=== PATIENT | female | born 1985 | race Caucasian/White ===

== ENCOUNTER 2019-12-17 16:06 | Emergency (ER) | payer OTHER ==
[~2019-12-17] VITALS: Ht 167.6 cm; Wt 74.8 kg
--- NOTE | 2019-12-17 16:16 | NUR ---
PT AMBULATORY TO ER BED 16 C/O BILAT FLANK PAIN W/ DYSURIA AND HEMATURIA THAT STARTED YESTERDAY. PT STATES HX OF UTI. PT IS AFEBRILE W/ STABLE VITALS TAX ANALYST. AWAITING MD BATES.
--- NOTE | 2019-12-17 16:28 | NUR ---
DR RODRIGUEZ AT BEDSIDE FOR EVAL.
[2019-12-17 16:46] LABS: APPEARANCE,URINE Clear (CLEAR); BILIRUBIN,URINE Negative (NEGATIVE); BLOOD, URINE Moderate Ery/uL (NEGATIVE); COLOR,URINE Yellow (YELLOW); KETONES,URINE Negative (NEGATIVE); LEUKOCYTE ESTERASE ,URINE Trace (NEGATIVE); NITRITE, URINE Negative (NEGATIVE); PROTEIN,URINE Negative (NEGATIVE); UGLUCOSE Negative (NEGATIVE); UROBILINOGEN,URINE 0.2 EU/dL (0.2)
[2019-12-17 17:05] LABS: BACTERIA,URINE Few /HPF (None Seen)
[2019-12-17 17:06] LABS: MUCUS,URINE Few /LPF (None Seen); URINE AMORPHOUS URATE Few /HPF (None Seen)
[2019-12-17] MEDS ORDERED: KETOROLAC TROMETHAMINE INJ 30 MG/ML VIAL IV ONE (17:30)
[2019-12-17 17:31] LABS: BASOPHILS % (AUTO) 0.5 % (0.0-2.0); EOSINOPHILS % (AUTO) 1.7 % (0.0-6.0); HEMATOCRIT 37 % (33-45); HEMOGLOBIN 12.1 g/dL (11.5-14.8); LYMPHOCYTES % (AUTO) 32.2 % (20.0-44.0); MEAN CORPUSCULAR HGB CONC 33 g/dl (31.0-36.0); MEAN CORPUSCULAR VOLUME 80 fL (82-100); MONOCYTES # (AUTO) 0.5 /CMM (0.1-1.30); MONOCYTES % (AUTO) 8.4 % (2.0-12.0); NEUTROPHILS # (AUTO) 3.5 /CMM (1.8-8.9); NEUTROPHILS % (AUTO) 57.2 % (43.0-81.0); PLATELET COUNT (AUTO) 205 /CMM (150-450); RED BLOOD CELL COUNT(AUTO) 4.67 MIL/uL (4.0-5.2); WHITE BLOOD COUNT (AUTO) 6.1 K/uL (4.3-11.0)
[2019-12-17] MEDS ORDERED: KETOROLAC TROMETHAMINE INJ 30 MG/ML VIAL ONE (17:37)
[2019-12-17 17:39] LABS: CALCIUM, SERUM 8.4 mg/dL (8.5-10.1); CREATININE 0.7 mg/dL (0.6-1.3); POTASSIUM 4.2 mmol/L (3.5-5.1)
--- NOTE | 2019-12-17 17:40 | NUR ---
PT TO RADIOLOGY FOR ABDOMINAL CT SCAN VIA [facility].
--- NOTE | 2019-12-17 18:33 | NUR ---
Patient discharged to home in stable condition. Written and verbal after care instructions given. Patient verbalizes understanding of instruction.IV removed. Catheter intact and site benign. Pressure and 4x4 applied to site. No bleeding noted.
[2019-12-17 18:34] VITALS: BP 122/80
== END 2019-12-17 18:34 | disposition home or self-care (01) ==
LOC: ER 16:13
DX: N39.0 Urinary tract infection, site not specified (principal)
CPT/HCPCS: 36415; 74176; 80048; 81001; 84703; 85025; 87086; 96374; 99284; J1885; 81000-TC

== ENCOUNTER 2021-07-01 16:01 | Emergency (ER) | payer MEDICAID, OTHER ==
[~2021-07-01] VITALS: Ht 165.1 cm; Wt 65.8 kg
--- NOTE | 2021-07-01 16:05 | NUR ---
BIB RA C/O BACK PAIN AND CP WHILE DRIVING, DENIES TRAUMA. P/S 04/27. DENIES NUMBNESS, TINGLING. AAOX4, ASSISTED TO ER BED 4, ON MONITOR, ON ROOM AIR POX 100%.
--- NOTE | 2021-07-01 16:06 | NUR ---
EKG BEING DONE AT BEDSIDE
--- NOTE | 2021-07-01 16:10 | NUR ---
MATT GROVES AT BEDSIDE FOR EVAL
[2021-07-01] MEDS ORDERED: LORAZEPAM INJ 2 MG/ML VIAL IV ONE (16:30)
[2021-07-01] MEDS ORDERED: ONDANSETRON HCL/PF 4 MG/2 ML VIAL IVP ONE (16:30)
[2021-07-01] MEDS ORDERED: ASPIRIN 325 MG TABLET PO ONE (16:30)
[2021-07-01] MEDS ORDERED: MORPHINE SULFATE INJ 2 MG/ML DISP.SYRIN IV ONE (16:30)
[2021-07-01] MEDS ORDERED: IV NS 0.9% 500 ML BAG IV ONE (16:30)
[2021-07-01] MEDS ORDERED: LORAZEPAM INJ 2 MG/ML VIAL ONE (16:31)
[2021-07-01] MEDS ORDERED: ONDANSETRON HCL/PF 4 MG/2 ML VIAL ONE (16:31)
[2021-07-01] MEDS ORDERED: MORPHINE SULFATE INJ 4 MG/ML DISP.SYRIN ONE (16:32)
[2021-07-01] MEDS ORDERED: ASPIRIN 325 MG TABLET ONE (16:32)
--- NOTE | 2021-07-01 16:48 | NUR ---
SUPERVISOR TREE TRIMMING AT BEDSIDE
--- NOTE | 2021-07-01 17:01 | NUR ---
RADIOLOGY AT BEDSIDE
[2021-07-01 17:19] LABS: CALCIUM, SERUM 9.7 mg/dL (8.5-10.1); CARBON DIOXIDE 22 mmol/L (21-32); CHLORIDE 104 mmol/L (98-107); GLUCOSE 94 mg/dL (74-106); POTASSIUM 3.7 mmol/L (3.5-5.1); SODIUM SERUM 138 mmol/L (136-145); UREA NITROGEN, BLOOD 11 mg/dL (7-18)
[2021-07-01 17:28] LABS: ALANINE AMINOTRANSFERASE 20 U/L (12-78); ALBUMIN 4.1 g/dL (3.4-5.0); ALKALINE PHOSPHATASE 85 U/L (46-116); ASPARTATE AMINOTRANSFERASE 17 U/L (15-37); BILIRUBIN,DIRECT 0.1 mg/dL (0.0-0.2); BILIRUBIN,TOTAL 0.4 mg/dL (0.2-1.0); TOTAL PROTEIN, SERUM 8.2 g/dL (6.4-8.2)
--- NOTE | 2021-07-01 18:02 | NUR ---
PT LAYING IN BED COMFORTABLY, BLANKET GIVEN, NEEDS MET
[2021-07-01 18:12] LABS: BASOPHILS # (AUTO) 0.1 K/uL (0.0-0.2); EOSINOPHILS % (AUTO) 1.2 % (0.0-6.0); HEMATOCRIT 40 % (33-45); HEMOGLOBIN 13.4 g/dL (11.5-14.8); LYMPHOCYTES # (AUTO) 1.5 K/uL (0.8-4.8); LYMPHOCYTES % (AUTO) 21.2 % (20.0-44.0); MEAN CORPUSCULAR HGB CONC 33 g/dl (31.0-36.0); MEAN CORPUSCULAR VOLUME 82 fL (82-100); MONOCYTES # (AUTO) 0.5 K/uL (0.1-1.30); MONOCYTES % (AUTO) 6.7 % (2.0-12.0); NEUTROPHILS % (AUTO) 69.9 % (43.0-81.0); PLATELET COUNT (AUTO) 225 K/uL (150-450); WHITE BLOOD COUNT (AUTO) 7.2 K/uL (4.3-11.0)
[2021-07-01] MEDS ORDERED: NAPR-1009 PO (20:07)
[2021-07-01] MEDS ORDERED: CYCL10TA9 PO (20:07)
--- NOTE | 2021-07-01 20:17 | NUR ---
Patient discharged to home in stable condition. Written and verbal after care instructions given. Patient verbalizes understanding of instruction. IV removed. Catheter intact and site benign. Pressure and 4x4 applied to site. No bleeding noted. pt. ambulatory with a steady gait
[2021-07-01 20:32] VITALS: BP 105/83
== END 2021-07-01 20:17 | disposition home or self-care (01) ==
LOC: ER 16:08
DX: R07.89 Other chest pain (principal); M62.830 Muscle spasm of back
CPT/HCPCS: 36415; 71045; 80048; 80076; 84484; 84703; 85025; 85378; 93005; 96374; 96375; 99285; J2060; J2270; J2405; J7030

== ENCOUNTER 2022-05-03 15:24 | Emergency (ER) | payer MEDICAID ==
[~2022-05-03] VITALS: Ht 167.6 cm; Wt 77.6 kg
[~2022-05-03 15:24] MED LIST: CYCL10TA9 PO; NAPR-1009 PO
[2022-05-03 15:29] VITALS: BP 113/71
[2022-05-03] MEDS ORDERED: AMOX-430 PO (17:10)
[2022-05-03] MEDS ORDERED: IBUP-1953 PO (17:10)
[2022-05-03] MEDS ORDERED: AMOX/CLAVULANATE 875 MG TABLET ONE (17:14)
[2022-05-03] MEDS ORDERED: KETOROLAC TROMETHAMINE INJ 30 MG/ML VIAL ONE (17:14)
--- NOTE | 2022-05-03 17:21 | NUR ---
Patient discharged to home in stable condition. Written and verbal after care instructions given. Patient verbalizes understanding of instruction.
[2022-05-03] MEDS ORDERED: AMOX/CLAVULANATE 875 MG TABLET PO ONE (17:30)
[2022-05-03] MEDS ORDERED: KETOROLAC TROMETHAMINE INJ 30 MG/ML VIAL IM ONE (17:30)
== END 2022-05-03 17:21 | disposition home or self-care (01) ==
LOC: ER 15:27
DX: H83.02 Labyrinthitis, left ear (principal); Z87.440 Personal history of urinary (tract) infections; Z79.899 Other long term (current) drug therapy
CPT/HCPCS: 99283; 96372; J1885

== ENCOUNTER 2022-05-14 16:50 | Inpatient (IN) | payer MEDICAID ==
[~2022-05-14] VITALS: Ht 167.6 cm; Wt 78.9 kg
[~2022-05-14 16:50] MED LIST changes: +AMOX-430 PO; +IBUP-1953 PO
[2022-05-14] MEDS ORDERED: CEFEPIME 1 GM in IV D5W 50 ML IV ONE (17:30)
[2022-05-14] MEDS ORDERED: MORPHINE SULFATE INJ 2 MG/ML DISP.SYRIN IV ONE ×3 (17:30→21:30)
--- NOTE | 2022-05-14 17:47 | NUR ---
PT TAKEN TO RADIOLOGY FOR CT
[2022-05-14] MEDS ORDERED: MORPHINE SULFATE INJ 2 MG/ML DISP.SYRIN ONE ×3 (17:53→22:19)
--- NOTE | 2022-05-14 18:10 | NUR ---
URINE SAMPLE COLLECTED AND SENT TO LAB
--- NOTE | 2022-05-14 18:14 | NUR ---
IV LINE INSERTED ON RAC #20, BLOOD DRAWN AND SENT TO LAB
[2022-05-14 18:29] LABS: BASOPHILS % (AUTO) 0.6 % (0.0-2.0); EOSINOPHILS % (AUTO) 1.6 % (0.0-6.0); HEMATOCRIT 39 % (33-45); HEMOGLOBIN 12.8 g/dL (11.5-14.8); LYMPHOCYTES # (AUTO) 2.3 K/uL (0.8-4.8); LYMPHOCYTES % (AUTO) 33.2 % (20.0-44.0); MEAN CORPUSCULAR HGB CONC 33 g/dl (31.0-36.0); MEAN CORPUSCULAR VOLUME 79 fL (82-100); MONOCYTES # (AUTO) 0.5 K/uL (0.1-1.30); MONOCYTES % (AUTO) 7.1 % (2.0-12.0); NEUTROPHILS % (AUTO) 57.5 % (43.0-81.0); PLATELET COUNT (AUTO) 264 K/uL (150-450); RED BLOOD CELL COUNT(AUTO) 4.96 MIL/uL (4.0-5.2)
--- NOTE | 2022-05-14 18:46 | NUR ---
COVID SWAB COLLECTED AND SENT TO LAB
[2022-05-14 19:07] LABS: BILIRUBIN,URINE NEGATIVE (NEGATIVE); COLOR,URINE YELLOW (YELLOW); LEUKOCYTE ESTERASE ,URINE NEGATIVE (NEGATIVE); NITRITE, URINE NEGATIVE (NEGATIVE); PH,URINE 5.5 (5.0-8.0); PROTEIN,URINE NEGATIVE (NEGATIVE); UGLUCOSE NEGATIVE (NEGATIVE); UROBILINOGEN,URINE 0.2 EU/dL (0.2)
--- NOTE | 2022-05-14 19:11 | NUR ---
MOVE SHEET SUBMITTED.
[2022-05-14 19:15] LABS: CALCIUM, SERUM 8.8 mg/dL (8.5-10.1); CREATININE 0.9 mg/dL (0.6-1.3); POTASSIUM 3.8 mmol/L (3.5-5.1)
[2022-05-14 19:26] LABS: ALBUMIN 3.7 g/dL (3.4-5.0); BILIRUBIN,DIRECT 0.1 mg/dL (0.0-0.2); BILIRUBIN,TOTAL 0.3 mg/dL (0.2-1.0); TOTAL PROTEIN, SERUM 7.8 g/dL (6.4-8.2)
--- NOTE | 2022-05-14 21:19 | NUR ---
MS [id number]
--- NOTE | 2022-05-14 22:16 | NUR ---
REPORT GIVEN TO JIMMIE SEGURA.
--- NOTE | 2022-05-14 22:30 | NUR ---
ADMISSION NOTES RECEIVED PT VIA ARACELI @[id number]. AOx4, ABLE TO MAKE NEEDS KNOWN. ON RA AND TOLERATING WELL. NO SOB NOTED. NO S/SX OF RESPIRATORY DISTRESS NOTED. IV ACCESS IN RAC #20G RUNNING NS @75 ML/HR. SKIN INTACT. SAFETY PRECAUTIONS IN PLACE: BED IN LOWEST, LOCKED POSITION, SIDERAILS UPx2, AND BRAKES ON. ALL NEEDS MET AT THIS TIME.
--- NOTE | 2022-05-14 22:33 | NUR ---
TRANSFERRED PT TO ROOM
[2022-05-14 22:34] VITALS: BP 112/60
[2022-05-14] MEDS ORDERED: Z GUARD REMEDY 4 OZ OINT TP PRN (23:30)
[2022-05-14] MEDS ORDERED: MAG HYDROX/AL HYDROX/SIMETH 30 ML UDC PO PRN (23:30)
[2022-05-14] MEDS ORDERED: IV NS 0.9% 1,000 ML IV PRN (23:30)
[2022-05-14] MEDS ORDERED: MAGNESIUM HYDROXIDE 30 ML UDC PO PRN (23:30)
[2022-05-14] MEDS ORDERED: ZOLPIDEM TARTRATE 5 MG TABLET PO PRN (23:30)
[2022-05-14] MEDS ORDERED: ACETAMINOPHEN 325 MG TABLET PO PRN (23:30)
[2022-05-14] MEDS ORDERED: ONDANSETRON HCL/PF 4 MG/2 ML VIAL IVP PRN (23:30)
[2022-05-15] MEDS: HYDROCODONE/APAP 10/325MG TABLET PO PRN ×2 (01:09→11:13)
--- NOTE | 2022-05-15 01:09 | NUR ---
RN NOTES ADMINISTERED NORCO FOR PAIN PER MD ORDER. VS WNL.
[2022-05-15] MEDS: MORPHINE SULFATE INJ 2 MG/ML DISP.SYRIN IV PRN (03:11)
--- NOTE | 2022-05-15 03:11 | NUR ---
RN NOTES ADMINISTERED MORPHINE FOR PAIN PER MD ORDER. VS WNL.
--- NOTE | 2022-05-15 06:41 | NUR ---
RN CLOSING NOTES PT IN BED, ASLEEP, AWAKENS TO VERBAL STIMULI. AOx4, ABLE TO MAKE NEEDS KNOWN. ON RA AND TOLERATING WELL. NO SOB NOTED. NO S/SX OF RESPIRATORY DISTRESS NOTED. IV ACCESS IN RAC #20G RUNNING NS @75 ML/HR. SKIN INTACT. ALL ORDERS CARRIED OUT. ALL NEEDS MET. PT KEPT CLEAN AND DRY. SAFETY PRECAUTIONS IN PLACE: BED IN LOWEST, LOCKED POSITION, SIDERAILS UPx2, AND BRAKES ON. WILL ENDORSE TO ONCOMING SHIFT FOR SHEN.
[2022-05-15 06:50] LABS: BASOPHILS % (AUTO) 0.6 % (0.0-2.0); EOSINOPHILS % (AUTO) 1.2 % (0.0-6.0); HEMATOCRIT 37 % (33-45); HEMOGLOBIN 12.2 g/dL (11.5-14.8); LYMPHOCYTES # (AUTO) 1.8 K/uL (0.8-4.8); LYMPHOCYTES % (AUTO) 30.3 % (20.0-44.0); MEAN CORPUSCULAR HGB CONC 33 g/dl (31.0-36.0); MEAN CORPUSCULAR VOLUME 78 fL (82-100); MONOCYTES # (AUTO) 0.4 K/uL (0.1-1.30); MONOCYTES % (AUTO) 7.4 % (2.0-12.0); NEUTROPHILS # (AUTO) 3.6 K/uL (1.8-8.9); NEUTROPHILS % (AUTO) 60.5 % (43.0-81.0); PLATELET COUNT (AUTO) 213 K/uL (150-450); RED BLOOD CELL COUNT(AUTO) 4.69 MIL/uL (4.0-5.2); WHITE BLOOD COUNT (AUTO) 5.9 K/uL (4.3-11.0)
[2022-05-15 07:00] VITALS: BP 105/60
--- NOTE | 2022-05-15 07:02 | NUR ---
MS RN OPENING NOTES RECEIVED PATIENT AWAKE IN BED RESTING, A/Ox4. ON ROOM AIR NO S/S OF PAIN OR DISCOMFORT. IV ACCESS R AC#20G NS RUNNING 75 ML/HR. INTACT AND PATIENT NO S/S OF INFILTRATION. PATIENT IS AMBULATORY, HAS BATHROOM PRIVILEGES. SKIN INTACT. SAFETY MEASURES IN PLACE: BED LOCKED AND IN LOWEST POSITION, SIDE RAILS UP x2, CALL LIGHT WITHIN REACH, HOB ELEVATED. WILL CONTINUE TO MONITOR.
[2022-05-15 07:20] LABS: CALCIUM, SERUM 8.8 mg/dL (8.5-10.1); CREATININE 0.9 mg/dL (0.6-1.3); MAGNESIUM 2.1 mg/dL (1.8-2.4); PHOSPHORUS 4.1 mg/dL (2.5-4.9); POTASSIUM 4.1 mmol/L (3.5-5.1)
[2022-05-15] MEDS: PANTOPRAZOLE 40 MG TABLET.DR PO SCH (08:11)
[2022-05-15] MEDS ORDERED: CEFEPIME 2 GM in IV D5W 100 ML IV SCH (09:00)
[2022-05-15] MEDS ORDERED: CEFEPIME 1 GM in IV D5W 50 ML IV SCH (09:00)
[2022-05-15] MEDS ORDERED: ATOR10TA PO (09:13)
[2022-05-15] MEDS ORDERED: CHOL100034 PO (09:13)
--- NOTE | 2022-05-15 12:15 | NUR ---
RN NOTES PATIENT COMPLAINED OF PAIN OF EAR, PRN NARCO ADMINISTERED. WILL CONTINUE TO MONITOR.
[2022-05-15] MEDS: VANCOMYCIN 1.25 GM in IV D5W 250 ML IV SCH (13:49)
[2022-05-15 16:00] VITALS: BP 108/64
[2022-05-15] MEDS ORDERED: diphenhydrAMINE HCL 25 MG CAPSULE PO PRN (16:30)
[2022-05-15] MEDS ORDERED: PIPERACILLIN /TAZOBACTAM 3.375 G in IV D5W 50 ML IV SCH (18:00)
--- NOTE | 2022-05-15 18:42 | NUR ---
MS RN CLOSING NOTES RECEIVED PATIENT AWAKE IN BED RESTING, A/Ox4. ON ROOM AIR NO S/S OF PAIN OR DISCOMFORT. IV ACCESS R AC#20G SL. INTACT AND PATIENT NO S/S OF INFILTRATION. PATIENT IS AMBULATORY, HAS BATHROOM PRIVILEGES. SKIN INTACT. ALL PRESCRIBED MEDICATION ADMINISTERED. SAFETY MEASURES MAINTAINED: BED LOCKED AND IN LOWEST POSITION, SIDE RAILS UP x2, CALL LIGHT WITHIN REACH, HOB ELEVATED. WILL ENDORSE TO NEXT SHIFT ANY SHEN.
--- NOTE | 2022-05-15 19:59 | NUR ---
MS RN OPENING NOTES PATIENT AWAKE IN BED RESTING, A/Ox4. ON ROOM AIR NO S/S OF PAIN OR DISCOMFORT. IV ACCESS R AC#20G SL. INTACT AND PATIENT NO S/S OF INFILTRATION. PATIENT IS AMBULATORY, HAS BATHROOM PRIVILEGES. SKIN INTACT. SAFETY MEASURES MAINTAINED: BED LOCKED AND IN LOWEST POSITION, SIDE RAILS UP x2, CALL LIGHT WITHIN REACH, HOB ELEVATED.
[2022-05-15 20:00] VITALS: BP 100/61
[2022-05-15] MEDS: MEROPENEM 1 G in IV NS 0.9% 100 ML IV SCH (21:16)
[2022-05-16] MEDS: VANCOMYCIN 1.25 GM in IV D5W 250 ML IV SCH ×2 (01:24→13:02)
[2022-05-16] MEDS: MEROPENEM 1 G in IV NS 0.9% 100 ML IV SCH ×2 (04:58→12:07)
[2022-05-16 05:49] LABS: BASOPHILS % (AUTO) 0.4 % (0.0-2.0); EOSINOPHILS % (AUTO) 1.6 % (0.0-6.0); HEMATOCRIT 36 % (33-45); HEMOGLOBIN 11.9 g/dL (11.5-14.8); LYMPHOCYTES # (AUTO) 2.3 K/uL (0.8-4.8); LYMPHOCYTES % (AUTO) 35.7 % (20.0-44.0); MEAN CORPUSCULAR HGB CONC 33 g/dl (31.0-36.0); MEAN CORPUSCULAR VOLUME 78 fL (82-100); MONOCYTES # (AUTO) 0.4 K/uL (0.1-1.30); MONOCYTES % (AUTO) 6.8 % (2.0-12.0); NEUTROPHILS # (AUTO) 3.6 K/uL (1.8-8.9); NEUTROPHILS % (AUTO) 55.5 % (43.0-81.0); PLATELET COUNT (AUTO) 204 K/uL (150-450); RED BLOOD CELL COUNT(AUTO) 4.66 MIL/uL (4.0-5.2); WHITE BLOOD COUNT (AUTO) 6.6 K/uL (4.3-11.0)
[2022-05-16 07:00] LABS: CALCIUM, SERUM 8.6 mg/dL (8.5-10.1); PHOSPHORUS 4.5 mg/dL (2.5-4.9); POTASSIUM 3.9 mmol/L (3.5-5.1)
--- NOTE | 2022-05-16 07:27 | NUR ---
MS RN OPENING NOTE RECEIVED PT ASLEEP IN BED, EASILY AROUSED. PT A/OX4, ABLE TO MAKE NEEDS KNOWN. ON ROOM AIR, TOLERATING WELL. NO SOB NOTED. NOT IN ANY SIGN OF RESPIRATORY DISTRESS. IV ACCESS IN LFA G#20 INTACT AND PATENT. SAFETY MEASURES IN PLACE: BED IN LOWEST AND LOCKED POSITION, SIDE RAILS UPX2, AND CALL LIGHT WITHIN EASY REACH. WILL CONTINUE TO MONITOR PT.
[2022-05-16 08:00] VITALS: BP 93/56
[2022-05-16] MEDS: PANTOPRAZOLE 40 MG TABLET.DR PO SCH (08:04)
[2022-05-16] MEDS: HYDROCODONE/APAP 10/325MG TABLET PO PRN (10:36)
--- NOTE | 2022-05-16 10:41 | NUR ---
RN NOTE PT C/O LEFT EAR PAIN WITH PAIN SCALE LEVEL OF 6/10 AND REQUESTED FOR HER PAIN MEDICATION. NORCO 10/325 MG 1 TAB PO GIVEN ORDERED PRN Q4H FOR PAIN. WILL MONITOR AND REASSESS PT.
--- NOTE | 2022-05-16 12:23 | NUR ---
RN NOTE PT C/O CONSTIPATION FOR 3 DAYS. PT HAS AN ORDER OF MILK OF MAGNESIA PRN AT HS ONLY. CALLED DR. KRISTINA LOPEZ AND ASK IF OKAY TO CHANGE MOM TO PRN BID. DR. LOPEZ AGREED TO CHANGE ORDER TO PRN BID. ORDERS CARRIED OUT.
[2022-05-16] MEDS ORDERED: MAGNESIUM HYDROXIDE 30 ML UDC PO PRN (12:30)
--- NOTE | 2022-05-16 12:30 | NUR ---
RN NOTE MILK OF MAGNESIA 30ML PO GIVEN ORDERED PRN BID FOR PT'S C/O CONSTIPATION. WILL MONITOR AND REASSESS PT.
[2022-05-16] MEDS: MORPHINE SULFATE INJ 2 MG/ML DISP.SYRIN IV PRN (12:54)
--- NOTE | 2022-05-16 13:04 | NUR ---
RN NOTE PT C/O LEFT EAR PAIN AND SEVERE HEADACHE WITH PAIN SCALE LEVEL OF 9/10 AND REQUESTED FOR HER PAIN MEDICATION. MORPHINE 4MG IV GIVEN ORDERED PRN Q4H FOR SEVERE PAIN. WILL MONITOR AND REASSESS PT.
[2022-05-16 16:01] VITALS: BP 87/52
[2022-05-16] MEDS ORDERED: OXYC-128 PO (16:58)
--- NOTE | 2022-05-16 19:05 | NUR ---
MAINTENANCE PERSON NOTE PT DISCHARGED TO HOME IN STABLE CONDITION. PT A/O X4, ABLE TO MAKE NEEDS KNOWN. ON RA, TOLERATING WELL WITH SPO2 AT 97%. NO SOB NOTED. NOT IN ANY SIGN OF RESPIRATORY DISTRESS. VITAL SIGNS TAKEN, STABLE, AND RECORDED. ALL BELONGINGS ACCOUNTED FOR. DISCHARGED INSTRUCTIONS AND HEALTH TEACHINGS GIVEN TO PT ESPECIALLY IN REGARDS TO HER IV ANTIBIOTICS AND MADE PT AWARE THAT SHE WILL HAVE HOMEHEALTH RN THAT WILL BE VISITING HER TO TAKE CARE OF HER MIDLINE AND IV MEDICATIONS. ALSO MADE HER AWARE OF HER PERCOCET MEDICATION PRESCRIPTION TO TAKE THE MEDICATION ORDERED, TO NOT TAKE TYLENOL, DRIVE, AND/OR DRINK ALCOHOL WHILE TAKING THIS MEDICATION. PT IS AWARE AND VERBALIZED UNDERSTANDING. IV ACCESS IN LFA G #20 REMOVED WITH NO ACTIVE BLEEDING NOTED. DRY PRESSURE DRESSING APPLIED TO SITE. PT HAS A MIDLINE IN HER ALEXANDER G#18 INTACT AND PATENT AND WILL REMAIN ON HER FOR IV MEDICATIONS ADMINISTRATION AT HOME WITH HOME HEALTH RN. NAME BAND REMOVED. PT LEFT THE UNIT AT 1905 VIA WHEELCHAIR, ACCOMPANIED BY THE SHON RUIZ. PT WAS PICKED UP BY FRIEND VIA PRIVATE CAR. MD AND CHARGED NURSE AWARE OF DISCHARGED.
== END 2022-05-16 19:00 | disposition home health service (06) | DRG 113 ==
LOC: ER 16:52 → MED 22:08
PROVIDERS: ADMIT Nurse Practitioner Acute Care; ATTEND Nurse Practitioner Family
PROC: 05HC33Z Insertion of Infusion Device into Left Basilic Vein, Percutaneous Approach (ICD-10-PCS; principal; 2022-05-16)
DX: H70.002 Acute mastoiditis without complications, left ear (principal); Z20.822 Contact with and (suspected) exposure to COVID-19; Z87.440 Personal history of urinary (tract) infections; Z79.899 Other long term (current) drug therapy; Z90.49 Acquired absence of other specified parts of digestive tract
CPT/HCPCS: 36415; 70486-TC; 80048-TC; 80076-TC; 83735-TC; 84100-TC; 84703-TC; 85025-TC; 87040-TC; 87081-TC; C9803; G0378; J0692; J2185; J2270; J2543; J3370; J7030; J7060; Q0163